=== PATIENT | female | born 1985 | race Caucasian/White ===

== ENCOUNTER 2021-07-25 09:27 | Inpatient (IN) | payer OTHER ==
[2021-07-25] MEDS ORDERED: Sodium Chloride 0.9% 10 ML Syringe FLUSH PRN (10:29)
[2021-07-25] MEDS ORDERED: Lactated Ringers 1,000 ML IV ONE (10:32)
[2021-07-25] MEDS ORDERED: ePHEDrine 50 MG/ML SDV IVPUSH PRN (10:32)
[2021-07-25 11:25] LABS: CORONAVIRUS COVID-19 NAA NEGATIVE (NEGATIVE)
[2021-07-25] MEDS ORDERED: Ropivacaine 100 ML ONE (12:03)
--- NOTE | 2021-07-25 12:49 | PCM.LDHP ---
L&D History of Present Illness - General Date of Service: 07/25/21 Admit Problem/Dx: Patient Status Order with Admit Dx/Problem 07/25/21 10:29 Patient Status [ADT] Routine Admission Diagnosis/Problem Admission Diagnosis/Problem Labor established Source of Information: Patient History Limitations: Reports: No Limitations - History of Present Illness Introduction:: This 35 year old who is 39 2/7 present in labor and was dilated to 4 cm. She started dalila earlier this morning and had lots of mucous discharge. Contractions got increasingly stronger. No leakage of fluid. Adequate care. Labs: GBS neg ABO O pos HIV neg Rubella immune Timing/Duration: Reports: minutes: (1-2 minutes) Location, : Reports: Abdomen Quality: Reports: Pressure Severity: Mild Improves with: Reports: Medication Worsens with: Reports: None Associated Symptoms: Reports: vaginal discharge, moderate amount - Related Data Allergies/Adverse Reactions: Allergies Allergy/AdvReac Type Severity Reaction Status Date / Time No Known Allergies Allergy Verified 07/18/21 06:41 Home Medications: Home Meds Aspirin 81 mg PO DAILY 07/18/21 [History] Pnv No.95/Ferrous Fum/Folic AC [ Caplet] 1 each PO DAILY 07/18/21 [History] 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: : 2 Para: 1 LMP (Approximate): (FARIBA 07/25/21) Musculoskeletal History: Reports: Fracture Other Musculoskeletal History: left arm - Infectious Disease History Infectious Disease History: Reports: Chicken Pox, Novel Coronavirus - Past Surgical History HEENT Surgical History: Reports: Tonsillectomy Social & Family History - Family History Family Medical History: No Pertinent Family History - Tobacco Use Tobacco Use Status *Q: Never Tobacco User - Caffeine Use Caffeine Use: Reports: Coffee Other Caffeine Use: 1/day - Recreational Drug Use Recreational Drug Use: No H&P Review of Systems - Review of Systems: Review Of Systems: See Below General: Reports: No Symptoms HEENT: Reports: No Symptoms Pulmonary: Reports: No Symptoms Cardiovascular: Reports: No Symptoms Gastrointestinal: Reports: No Symptoms Genitourinary: Reports: No Symptoms Musculoskeletal: Reports: No Symptoms Skin: Reports: No Symptoms Psychiatric: Reports: No Symptoms Neurological: Reports: No Symptoms Hematologic/Lymphatic: Reports: No Symptoms Immunologic: Reports: No Symptoms L&D Exam - Exam Exam: See Below - Vital Signs Vital Signs: Last Vital Signs Temp Pulse 113 H 07/25/21 09:37 Resp BP 135/86 07/25/21 09:37 Pulse Ox 99 07/25/21 09:37 Weight: 229 lb 4.492 oz - OB Specific Contraction Duration (sec): 40-200 Contraction Frequency (min): 3-4 Contraction Intensity: Moderate Movement: Active Heart Tones: Present Heart Rate (FHR) Variability: Moderate (6-25 bpm) Presentation: Vertex Estimated Weight: 8 pounds - Mcmanus Score Mcmanus Score Cervix Position: Anterior Mcmanus Score Consistency: Soft Mcmanus Score Effacement: >80% Mcmanus Score Dilation: > 5 cm Mcmanus Score 's Station: -1 ,0 Mcmanus Score Total: 12 - Exam General: Alert, Oriented HEENT: PERRLA Neck: Supple Lungs: Clear to Auscultation, Normal Respiratory Effort Cardiovascular: Regular Rate, Regular Rhythm GI/Abdominal Exam: Soft Genitourinary: Cervical dilitation Back Exam: Full Range of Motion Extremities: No Pedal Edema, Normal Capillary Refill Skin: Warm Neurological: Cranial Nerves Intact Psychiatric: Alert, Normal Affect, Normal Mood - Patient Data Lab Results Last 24 hrs: Laboratory Results - last 24 hr 07/25/21 07/25/21 07/25/21 Range/Units 09:41 10:14 10:28 WBC 11.8 H (4.5-11.0) K/uL RBC 4.32 (3.30-5.50) M/uL Hgb 12.5 (12.0-15.0) g/dL Hct 37.2 (36.0-48.0) % MCV 86 (80-98) fL MCH 29 (27-31) pg MCHC 34 (32-36) % Plt Count 143 L (150-400) K/uL Neut % (Auto) 74.7 H (36-66) % Lymph % (Auto) 13.5 L (24-44) % [place] % (Auto) 9.1 H (2-6) % Eos % (Auto) 2.4 (2-4) % Baso % (Auto) 0.3 (0-1) % Urine Color Yellow (YELLOW) Urine Appearance Slightly cloudy A (CLEAR) Urine pH 6.0 (5.0-8.0) Ur Specific [place] 1.020 (1.008-1.030) Urine Protein Negative (NEGATIVE) mg/dL Urine Glucose (UA) Negative (NEGATIVE) mg/dL Urine Ketones Negative (NEGATIVE) mg/dL Urine Occult Blood Moderate H (NEGATIVE) Urine Nitrite Negative (NEGATIVE) Urine Bilirubin Negative (NEGATIVE) Urine Urobilinogen 0.2 (0.2-1.0) EU/dL Ur Leukocyte Esterase Small H (NEGATIVE) Urine RBC 5-10 H (0-5) Urine WBC 10-20 H (0-5) Ur Epithelial Cells Moderate Amorphous Sediment Not seen Urine Bacteria Many Urine Mucus Not seen Urine Opiates Screen Negative (NEGATIVE) Ur Oxycodone Screen Negative (NEGATIVE) Urine Methadone Screen Negative (NEGATIVE) Ur Propoxyphene Screen Negative (NEGATIVE) Ur Barbiturates Screen Negative (NEGATIVE) Ur Tricyclics Screen Negative (NEGATIVE) Ur Phencyclidine Scrn Negative (NEGATIVE) Ur Amphetamine Screen Negative (NEGATIVE) U Methamphetamines Scrn Negative (NEGATIVE) Urine MDMA Screen Negative (NEGATIVE) U Benzodiazepines Scrn Negative (NEGATIVE) U Cocaine Metab Screen Negative (NEGATIVE) U Marijuana (THC) Screen Negative (NEGATIVE) Influenza Type A RNA (NEGATIVE) RSV RNA (INAAT) (NEGATIVE) Influenza Type B RNA (NEGATIVE) SARS-CoV-2 RNA (RICO) (NEGATIVE) 07/25/21 Range/Units 10:31 WBC (4.5-11.0) K/uL RBC (3.30-5.50) M/uL Hgb (12.0-15.0) g/dL Hct (36.0-48.0) % MCV (80-98) fL MCH (27-31) pg MCHC (32-36) % Plt Count (150-400) K/uL Neut % (Auto) (36-66) % Lymph % (Auto) (24-44) % [place] % (Auto) (2-6) % Eos % (Auto) (2-4) % Baso % (Auto) (0-1) % Urine Color (YELLOW) Urine Appearance (CLEAR) Urine pH (5.0-8.0) Ur Specific [place] (1.008-1.030) Urine Protein (NEGATIVE) mg/dL Urine Glucose (UA) (NEGATIVE) mg/dL Urine Ketones (NEGATIVE) mg/dL Urine Occult Blood (NEGATIVE) Urine Nitrite (NEGATIVE) Urine Bilirubin (NEGATIVE) Urine Urobilinogen (0.2-1.0) EU/dL Ur Leukocyte Esterase (NEGATIVE) Urine RBC (0-5) Urine WBC (0-5) Ur Epithelial Cells Amorphous Sediment Urine Bacteria Urine Mucus Urine Opiates Screen (NEGATIVE) Ur Oxycodone Screen (NEGATIVE) Urine Methadone Screen (NEGATIVE) Ur Propoxyphene Screen (NEGATIVE) Ur Barbiturates Screen (NEGATIVE) Ur Tricyclics Screen (NEGATIVE) Ur Phencyclidine Scrn (NEGATIVE) Ur Amphetamine Screen (NEGATIVE) U Methamphetamines Scrn (NEGATIVE) Urine MDMA Screen (NEGATIVE) U Benzodiazepines Scrn (NEGATIVE) U Cocaine Metab Screen (NEGATIVE) U Marijuana (THC) Screen (NEGATIVE) Influenza Type A RNA Negative (NEGATIVE) RSV RNA (INAAT) Negative (NEGATIVE) Influenza Type B RNA Negative (NEGATIVE) SARS-CoV-2 RNA (RICO) Negative (NEGATIVE) Result Diagrams: 07/25/21 10:28 - Problem List (1) Active labor SNOMED Code(s): 997065497 ICD Code: [id number] - Status: Acute Current Visit: Yes Problem List Initiated/Reviewed/Updated: Yes Orders Last 24hrs: Active Orders 24 hr Category Date Time Status Patient Status [ADT] Routine ADT 07/25/21 10:29 Active Communication Order [RC] ASDIRECTED Care 07/25/21 10:29 Active Communication Order [RC] ASDIRECTED Care 07/25/21 10:32 Active Heart Tones [RC] PER UNIT ROUTINE Care 07/25/21 10:29 Active Insert Urinary Catheter [OM.PC] ASDIRECTED Care 07/25/21 10:45 Ordered Local Anesthetic Infusion Pump [RC] ASDIRECTED Care 07/25/21 10:32 Active Notify Provider Vital Signs [RC] PRN Care 07/25/21 10:31 Active Notify Provider [RC] PRN Care 07/25/21 10:29 Active OB Check [OM.PC] Click To Edit Care 07/25/21 09:33 Ordered PCEA Epidural [RC] ASDIRECTED Care 07/25/21 10:32 Active Up ad Nabila [RC] ASDIRECTED Care 07/25/21 10:29 Active Urinary Catheter Assessment [RC] ASDIRECTED Care 07/25/21 10:32 Active Vital Signs [RC] PER UNIT ROUTINE Care 07/25/21 10:29 Active Clear Liquid Diet [DIET] Diet 07/25/21 Lunch Active Sodium Chloride 0.9% [Saline Flush] Med 07/25/21 10:29 Active 10 ml FLUSH ASDIRECTED PRN ePHEDrine [ePHEDrine sulfate] Med 07/25/21 10:32 Active 10 mg IVPUSH ASDIRECTED PRN Epidural Catheter Management [OM.PC] Urgent Oth 07/25/21 10:32 Ordered Saline Lock Insert [OM.PC] Routine Oth 07/25/21 10:29 Ordered Resuscitation Status Routine Resus Stat 07/25/21 10:29 Ordered Medication Orders Ephedrine Sulfate (Ephedrine 50 Mg/Ml Sdv) 10 mg IVPUSH ASDIRECTED PRN PRN Reason: Hypotension Sodium Chloride (Sodium Chloride 0.9% 10 Ml Syringe) 10 ml FLUSH ASDIRECTED PRN PRN Reason: Keep Vein Open Assessment/Plan Comment:: 35 year old 39 2/7 weeks in active labor Plan: anticipate vaginal delivery
--- NOTE | 2021-07-25 14:18 | ANES ---
DATE OF SERVICE: 07/25/2021 INDICATIONS: I was called this afternoon for a young lady up in Labor and Delivery requesting labor epidural. A brief history and physical was done with the patient. The patient is healthy, not currently on any blood thinners. Risks and benefits were discussed with the patient including risk for infection, the risk for spinal headache. She verbalizes understanding, wishes to proceed with the labor epidural today. Platelet count was noted to be 142 prior. TECHNIQUE: The patient was sat at the edge of the bed. Betadine prep x3 to the lumbar region was done. Sterile drape was placed. 1% lidocaine skin wheal and deep was done. A 17-gauge Tuohy needle was inserted at approximately the L3-4 position. Loss of resistance was easily achieved at approximately 7 cm. Negative paresthesia, negative heme, negative CSF were noted. I then threaded the catheter through the Touhy needle easily. Tuohy needle was then withdrawn. Catheter was pulled back and secured at 15 cm. The patient tolerated that without difficulty. I then gave a 5 mL test dose. Laid the patient down in supine position with slight left uterine displacement and head of bed slightly elevated. Several minutes after the test dose, the patient did not show any signs of intravascular injection of local or did not have a subarachnoid block, so I then proceeded to give the patient a 12 mL bolus of 0.2% ropivacaine via the epidural and started her on a 0.2% ropivacaine drip at 12 mL an hour. The patient tolerated the bolus. Blood pressure was stable. The patient was starting to have a little bit of relief prior to leaving. I will be available as needed. Payam Escobar CRNA /[id number]
[2021-07-25] MEDS ORDERED: Methylergonovine 0.2 MG/1 ML Amp ONE (14:23)
[2021-07-25] MEDS ORDERED: Methylergonovine 0.2 MG/1 ML Amp IM ONE (14:32)
[2021-07-25] MEDS ORDERED: Hydrocortisone 2.5% Crm 30 GM Tube TOP PRN (14:52)
[2021-07-25] MEDS ORDERED: Benzocaine 20% Top Spray 56 GM Bottle TOP ONE (14:52)
[2021-07-25] MEDS ORDERED: Witch Hazel Medicated Pads 100/Jar TOP ONE (14:52)
[2021-07-25] MEDS ORDERED: Lanolin 100% Cream 40 GM Tube TOP ONE (14:52)
[2021-07-25] MEDS ORDERED: Ibuprofen 200 MG Tab, 24 Tab Bulk Bottle PO PRN (14:56)
[2021-07-25] MEDS ORDERED: Acetaminophen 325 MG Tab, 50 Tab Bulk Bottle PO PRN (14:56)
--- NOTE | 2021-07-25 15:12 | PCM.DEL ---
L & D Note - General Info Date of Service: 07/25/21 (childbirth) Mother's Due Date: 07/31/21 - Delivery Note Labor: Spontaneous Delivery Outcome: Livebirth Infant Delivery Method: Spontaneous Vaginal Delivery-Single Delivery Mode: Spontaneous Presentation: Vertex Nuchal Cord: None Anesthesia Type: Epidural Amniotic Fluid Description: Clear Episiotomy Type: None Laceration: None Placenta: Intact, Manual Removal, Retained Cord: 3 Vessels Estimated Blood Loss: 200 Resuscitation Needed: No : Bulb Syringe, Stimulated, Warmed, Crescent Used, Warmer Used Provider: Vane Bills Score 1 min: 7 Score 5 min: 8 Post Delivery Events: Retained Placenta Second Stage Interventions: Reports: Pushing Effectively, Pushing, Knee Chest Position Delivery Comments (Free Text/Narrative):: This 35 year old G2 now P2 who is 39 2/7 weeks delivered via at 1359 in [place] over an intact perineum. The was placed on mother's abdomen where he was dried and stimulated. The cord was double clamped and cut and her was taken to the warmer for assessment and stimulation. He cried spontaneously, was bulb suctioned and transitioned well. Apgars 7 & 9 color tone and color at 5 minutes. Three vessel cord weight 7-14. The placenta did not release and after 30 minutes manual removal was done in delivery suite as she had a good epidural and was comfortable enough for me to proceed. We had call the OR crew but ultimately did not need and further civil engineering assistant. The Placenta was a Rossi as very foul smelling. No lacerations of perineum, rectal vagina or cervix EBL: 200cc Mother and baby to post [place] was to breast as soon as the placenta was out and latched well First stage [address] Second Stage 9361-7802 Third stage 3946-3074 - General Info Date of Service: 07/25/21 Admission Dx/Problem (Free Text): Patient Status Order with Admit Dx/Problem 07/25/21 10:29 Patient Status [ADT] Routine Admission Diagnosis/Problem Admission Diagnosis/Problem Labor established Functional Status: Reports: Pain Controlled - Review of Systems General: Reports: No Symptoms HEENT: Reports: No Symptoms Pulmonary: Reports: No Symptoms Cardiovascular: Reports: No Symptoms Gastrointestinal: Reports: No Symptoms Genitourinary: Reports: No Symptoms Musculoskeletal: Reports: No Symptoms Skin: Reports: No Symptoms Neurological: Reports: No Symptoms Psychiatric: Reports: No Symptoms - Patient Data Vitals - Most Recent: Last Vital Signs Temp Pulse 97 07/25/21 13:07 Resp BP 122/70 07/25/21 12:54 Pulse Ox 97 07/25/21 13:07 Weight - Most Recent: 229 lb 4.492 oz Lab Results Last 24 Hours: Laboratory Results - last 24 hr 07/25/21 07/25/21 07/25/21 Range/Units 09:41 10:14 10:28 WBC 11.8 H (4.5-11.0) K/uL RBC 4.32 (3.30-5.50) M/uL Hgb 12.5 (12.0-15.0) g/dL Hct 37.2 (36.0-48.0) % MCV 86 (80-98) fL MCH 29 (27-31) pg MCHC 34 (32-36) % Plt Count 143 L (150-400) K/uL Neut % (Auto) 74.7 H (36-66) % Lymph % (Auto) 13.5 L (24-44) % [place] % (Auto) 9.1 H (2-6) % Eos % (Auto) 2.4 (2-4) % Baso % (Auto) 0.3 (0-1) % Urine Color Yellow (YELLOW) Urine Appearance Slightly cloudy A (CLEAR) Urine pH 6.0 (5.0-8.0) Ur Specific [place] 1.020 (1.008-1.030) Urine Protein Negative (NEGATIVE) mg/dL Urine Glucose (UA) Negative (NEGATIVE) mg/dL Urine Ketones Negative (NEGATIVE) mg/dL Urine Occult Blood Moderate H (NEGATIVE) Urine Nitrite Negative (NEGATIVE) Urine Bilirubin Negative (NEGATIVE) Urine Urobilinogen 0.2 (0.2-1.0) EU/dL Ur Leukocyte Esterase Small H (NEGATIVE) Urine RBC 5-10 H (0-5) Urine WBC 10-20 H (0-5) Ur Epithelial Cells Moderate Amorphous Sediment Not seen Urine Bacteria Many Urine Mucus Not seen Urine Opiates Screen Negative (NEGATIVE) Ur Oxycodone Screen Negative (NEGATIVE) Urine Methadone Screen Negative (NEGATIVE) Ur Propoxyphene Screen Negative (NEGATIVE) Ur Barbiturates Screen Negative (NEGATIVE) Ur Tricyclics Screen Negative (NEGATIVE) Ur Phencyclidine Scrn Negative (NEGATIVE) Ur Amphetamine Screen Negative (NEGATIVE) U Methamphetamines Scrn Negative (NEGATIVE) Urine MDMA Screen Negative (NEGATIVE) U Benzodiazepines Scrn Negative (NEGATIVE) U Cocaine Metab Screen Negative (NEGATIVE) U Marijuana (THC) Screen Negative (NEGATIVE) Influenza Type A RNA (NEGATIVE) RSV RNA (INAAT) (NEGATIVE) Influenza Type B RNA (NEGATIVE) SARS-CoV-2 RNA (RICO) (NEGATIVE) 07/25/21 Range/Units 10:31 WBC (4.5-11.0) K/uL RBC (3.30-5.50) M/uL Hgb (12.0-15.0) g/dL Hct (36.0-48.0) % MCV (80-98) fL MCH (27-31) pg MCHC (32-36) % Plt Count (150-400) K/uL Neut % (Auto) (36-66) % Lymph % (Auto) (24-44) % [place] % (Auto) (2-6) % Eos % (Auto) (2-4) % Baso % (Auto) (0-1) % Urine Color (YELLOW) Urine Appearance (CLEAR) Urine pH (5.0-8.0) Ur Specific [place] (1.008-1.030) Urine Protein (NEGATIVE) mg/dL Urine Glucose (UA) (NEGATIVE) mg/dL Urine Ketones (NEGATIVE) mg/dL Urine Occult Blood (NEGATIVE) Urine Nitrite (NEGATIVE) Urine Bilirubin (NEGATIVE) Urine Urobilinogen (0.2-1.0) EU/dL Ur Leukocyte Esterase (NEGATIVE) Urine RBC (0-5) Urine WBC (0-5) Ur Epithelial Cells Amorphous Sediment Urine Bacteria Urine Mucus Urine Opiates Screen (NEGATIVE) Ur Oxycodone Screen (NEGATIVE) Urine Methadone Screen (NEGATIVE) Ur Propoxyphene Screen (NEGATIVE) Ur Barbiturates Screen (NEGATIVE) Ur Tricyclics Screen (NEGATIVE) Ur Phencyclidine Scrn (NEGATIVE) Ur Amphetamine Screen (NEGATIVE) U Methamphetamines Scrn (NEGATIVE) Urine MDMA Screen (NEGATIVE) U Benzodiazepines Scrn (NEGATIVE) U Cocaine Metab Screen (NEGATIVE) U Marijuana (THC) Screen (NEGATIVE) Influenza Type A RNA Negative (NEGATIVE) RSV RNA (INAAT) Negative (NEGATIVE) Influenza Type B RNA Negative (NEGATIVE) SARS-CoV-2 RNA (RICO) Negative (NEGATIVE) Med Orders - Current: Current Medications Acetaminophen (Acetaminophen 325 Mg Tab, 50 Tab Bulk Bottle) 0 mg PO Q4H PRN PRN Reason: Pain Benzocaine (Benzocaine 20% Top [place] 56 Gm Bottle) 0 gm TOP Q4H ONE Stop: 07/25/21 14:53 Emollient Ointment (Lanolin 100% Cream 40 Gm Tube) 1 gm TOP ASDIRECTED ONE Stop: 07/25/21 14:53 Ephedrine Sulfate (Ephedrine 50 Mg/Ml Sdv) 10 mg IVPUSH ASDIRECTED PRN PRN Reason: Hypotension Hydrocortisone (Hydrocortisone 2.5% Crm 30 Gm Tube) 1 gm TOP ASDIRECTED PRN PRN Reason: Itching Ibuprofen (Ibuprofen 200 Mg Tab, 24 Tab Bulk Bottle) 600 mg PO Q6H PRN PRN Reason: Pain Methylergonovine Maleate (Methylergonovine 0.2 Mg Tab) 0.2 mg PO TID TI Stop: 07/26/21 14:01 Sodium Chloride (Sodium Chloride 0.9% 10 Ml Syringe) 10 ml FLUSH ASDIRECTED PRN PRN Reason: Keep Vein Open Witch Gisela (Witch Gisela Medicated Pads 100/Jar) 1 pad TOP ASDIRECTED ONE Stop: 07/25/21 14:53 Discontinued Medications Lactated Ringer's (Ringers, Lactated) 1,000 mls @ 999 mls/hr IV .BOLUS ONE Stop: 07/25/21 11:32 Last Admin: 07/25/21 11:41 Dose: 999 mls/hr Documented by: Ropivacaine (Naropin 0.2%) Confirm Administered Dose 100 mls @ as directed .ROUTE .STK-MED ONE Stop: 07/25/21 12:04 Oxytocin/Sodium Chloride (Pitocin In Ns 20 Units/1,000 Ml) Confirm Administered Dose 20 unit in 1,000 mls @ as directed .ROUTE .STK-MED ONE Stop: 07/25/21 13:58 Methylergonovine Maleate (Methylergonovine 0.2 Mg/1 Ml Amp) Confirm Administered Dose 0.2 mg .ROUTE .STK-MED ONE Stop: 07/25/21 14:24 - Exam General: Alert, Oriented HEENT: Pupils Equal Neck: Supple Lungs: Normal Respiratory Effort Cardiovascular: Regular Rate, Regular Rhythm GI/Abdominal Exam: Soft (Female) Exam: Enlarged Uterus, Vaginal Bleeding Back Exam: Full Range of Motion Extremities: No Pedal Edema, Normal Capillary Refill Skin: Warm Wound/Incisions: Healing Well Neurological: No New Focal Deficit Psy/Mental Status: Alert, Normal Affect, Normal Mood - Problem List & Annotations (1) Active labor SNOMED Code(s): 562878418 Code(s): SMA6845 - Status: Acute Current Visit: Yes (2) (infant) SNOMED Code(s): 815277302 Code(s): Z78.9 - OTHER SPECIFIED HEALTH STATUS Status: Acute Current Visit: Yes (3) Retained placenta or membranes without hemorrhage SNOMED Code(s): 1150836260 Code(s): SRY4449 - Status: Acute Current Visit: Yes (4) Vaginal delivery SNOMED Code(s): 922853722 Code(s): O80 - ENCOUNTER FOR FULL-TERM UNCOMPLICATED DELIVERY Status: Acute Current Visit: Yes - Problem List Review Problem List Initiated/Reviewed/Updated: Yes - My Orders Last 24 Hours: My Active Orders 07/25/21 14:52 Patient Status [ADT] Routine Vital Signs [RC] PFP Benzocaine [Pflx-N-Lskypip 20% Merkel] See Dose Instructions TOP Q4H ONE Hydrocortisone [Proctozone-HC 2.5% Crm] 1 gm TOP ASDIRECTED PRN Lanolin [Lansinoh HPA] 1 gm TOP ASDIRECTED ONE witch Gisela [Tucks] 1 pad TOP ASDIRECTED ONE DVT/VTE Prophylaxis Reflex [OM.PC] Routine 07/25/21 14:54 Antiembolic Devices [RC] .Routine VTE/DVT Education [RC] Click to Edit 07/25/21 14:56 Acetaminophen [Tylenol Bulk Bottle] See Dose Instructions PO Q4H PRN Ibuprofen [Motrin Bulk Bottle] 600 mg PO Q6H PRN 07/25/21 Dinner Regular Diet [DIET] 07/25/21 21:00 Methylergonovine [Methergine] 0.2 mg PO TID 07/26/21 05:11 CBC W/O DIFF,HEMOGRAM [HEME] AM - Assessment Assessment:: 07/25/21 Routine cares CBC in am Methergine times three doses placenta to pathology 24-48 hour stay - Plan Plan:: 35 year old 39 2/ weeks in active labor Plan: anticipate vaginal delivery 07/25/21 24-48 hour stay see above
[2021-07-25] MEDS ORDERED: Lanolin 100% Cream 40 GM Tube TOP PRN (15:43)
[2021-07-25] MEDS ORDERED: Benzocaine 20% Top Spray 56 GM Bottle TOP PRN (15:43)
[2021-07-25] MEDS ORDERED: Witch Hazel Medicated Pads 100/Jar TOP PRN (15:44)
[2021-07-25] MEDS: Methylergonovine 0.2 MG Tab PO SCH (22:01)
--- NOTE | 2021-07-26 08:24 | PCM.PNPP ---
- General Info Date of Service: 07/26/21 (PPD 1 D/C) Admission Dx/Problem (Free Text): Patient Status Order with Admit Dx/Problem 07/25/21 10:29 Patient Status [ADT] Routine Admission Diagnosis/Problem Admission Diagnosis/Problem Labor established Functional Status: Reports: Pain Controlled - Review of Systems General: Reports: No Symptoms HEENT: Reports: No Symptoms Pulmonary: Reports: No Symptoms Cardiovascular: Reports: No Symptoms Gastrointestinal: Reports: No Symptoms Genitourinary: Reports: No Symptoms Musculoskeletal: Reports: No Symptoms Skin: Reports: No Symptoms Neurological: Reports: No Symptoms Psychiatric: Reports: No Symptoms - Patient Data Vital Signs - Most Recent: Last Vital Signs Temp 96.9 F 07/26/21 07:18 Pulse 80 07/26/21 07:18 Resp 16 07/26/21 07:18 BP 110/78 07/26/21 07:18 Pulse Ox 97 07/26/21 07:18 Weight - Most Recent: 229 lb 4.492 oz I&O - Last 24 Hours: Intake & Output 07/25/21 07/26/21 07/26/21 22:59 06:59 14:59 Intake Total 900 Balance 900 Lab Results - Last 24 Hours: Laboratory Results - last 24 hr 07/25/21 07/25/21 07/25/21 Range/Units 09:41 10:14 10:28 WBC 11.8 H (4.5-11.0) K/uL RBC 4.32 (3.30-5.50) M/uL Hgb 12.5 (12.0-15.0) g/dL Hct 37.2 (36.0-48.0) % MCV 86 (80-98) fL MCH 29 (27-31) pg MCHC 34 (32-36) % Plt Count 143 L (150-400) K/uL Neut % (Auto) 74.7 H (36-66) % Lymph % (Auto) 13.5 L (24-44) % [place] % (Auto) 9.1 H (2-6) % Eos % (Auto) 2.4 (2-4) % Baso % (Auto) 0.3 (0-1) % Urine Color Yellow (YELLOW) Urine Appearance Slightly cloudy A (CLEAR) Urine pH 6.0 (5.0-8.0) Ur Specific [place] 1.020 (1.008-1.030) Urine Protein Negative (NEGATIVE) mg/dL Urine Glucose (UA) Negative (NEGATIVE) mg/dL Urine Ketones Negative (NEGATIVE) mg/dL Urine Occult Blood Moderate H (NEGATIVE) Urine Nitrite Negative (NEGATIVE) Urine Bilirubin Negative (NEGATIVE) Urine Urobilinogen 0.2 (0.2-1.0) EU/dL Ur Leukocyte Esterase Small H (NEGATIVE) Urine RBC 5-10 H (0-5) Urine WBC 10-20 H (0-5) Ur Epithelial Cells Moderate Amorphous Sediment Not seen Urine Bacteria Many Urine Mucus Not seen Urine Opiates Screen Negative (NEGATIVE) Ur Oxycodone Screen Negative (NEGATIVE) Urine Methadone Screen Negative (NEGATIVE) Ur Propoxyphene Screen Negative (NEGATIVE) Ur Barbiturates Screen Negative (NEGATIVE) Ur Tricyclics Screen Negative (NEGATIVE) Ur Phencyclidine Scrn Negative (NEGATIVE) Ur Amphetamine Screen Negative (NEGATIVE) U Methamphetamines Scrn Negative (NEGATIVE) Urine MDMA Screen Negative (NEGATIVE) U Benzodiazepines Scrn Negative (NEGATIVE) U Cocaine Metab Screen Negative (NEGATIVE) U Marijuana (THC) Screen Negative (NEGATIVE) Influenza Type A RNA (NEGATIVE) RSV RNA (INAAT) (NEGATIVE) Influenza Type B RNA (NEGATIVE) SARS-CoV-2 RNA (RICO) (NEGATIVE) 07/25/21 07/26/21 Range/Units 10:31 04:46 WBC 14.2 H (4.5-11.0) K/uL RBC 4.38 (3.30-5.50) M/uL Hgb 12.6 (12.0-15.0) g/dL Hct 38.1 (36.0-48.0) % MCV 87 (80-98) fL MCH 29 (27-31) pg MCHC 33 (32-36) % Plt Count 139 L (150-400) K/uL Neut % (Auto) (36-66) % Lymph % (Auto) (24-44) % [place] % (Auto) (2-6) % Eos % (Auto) (2-4) % Baso % (Auto) (0-1) % Urine Color (YELLOW) Urine Appearance (CLEAR) Urine pH (5.0-8.0) Ur Specific [place] (1.008-1.030) Urine Protein (NEGATIVE) mg/dL Urine Glucose (UA) (NEGATIVE) mg/dL Urine Ketones (NEGATIVE) mg/dL Urine Occult Blood (NEGATIVE) Urine Nitrite (NEGATIVE) Urine Bilirubin (NEGATIVE) Urine Urobilinogen (0.2-1.0) EU/dL Ur Leukocyte Esterase (NEGATIVE) Urine RBC (0-5) Urine WBC (0-5) Ur Epithelial Cells Amorphous Sediment Urine Bacteria Urine Mucus Urine Opiates Screen (NEGATIVE) Ur Oxycodone Screen (NEGATIVE) Urine Methadone Screen (NEGATIVE) Ur Propoxyphene Screen (NEGATIVE) Ur Barbiturates Screen (NEGATIVE) Ur Tricyclics Screen (NEGATIVE) Ur Phencyclidine Scrn (NEGATIVE) Ur Amphetamine Screen (NEGATIVE) U Methamphetamines Scrn (NEGATIVE) Urine MDMA Screen (NEGATIVE) U Benzodiazepines Scrn (NEGATIVE) U Cocaine Metab Screen (NEGATIVE) U Marijuana (THC) Screen (NEGATIVE) Influenza Type A RNA Negative (NEGATIVE) RSV RNA (INAAT) Negative (NEGATIVE) Influenza Type B RNA Negative (NEGATIVE) SARS-CoV-2 RNA (RICO) Negative (NEGATIVE) Med Orders - Current: Current Medications Acetaminophen (Acetaminophen 325 Mg Tab, 50 Tab Bulk Bottle) 0 mg PO Q4H PRN PRN Reason: Pain Last Admin: 07/25/21 15:53 Dose: 1 bottle Documented by: Benzocaine (Benzocaine 20% Top [place] 56 Gm Bottle) 0 gm TOP Q4H PRN PRN Reason: PERINEAL PAIN Emollient Ointment (Lanolin 100% Cream 40 Gm Tube) 1 gm TOP ASDIRECTED PRN PRN Reason: SORE NIPPLES Ephedrine Sulfate (Ephedrine 50 Mg/Ml Sdv) 10 mg IVPUSH ASDIRECTED PRN PRN Reason: Hypotension Hydrocortisone (Hydrocortisone 2.5% Crm 30 Gm Tube) 1 gm TOP ASDIRECTED PRN PRN Reason: Itching Oxytocin/Sodium Chloride (Pitocin In Ns 20 Units/1,000 Ml) 20 unit in 1,000 mls @ 2,997 mls/hr IV TITRATE TI; Protocol Last Titration: 07/25/21 14:30 Dose: 41.67 munits/min, 125.01 mls/hr Documented by: Ibuprofen (Ibuprofen 200 Mg Tab, 24 Tab Bulk Bottle) 600 mg PO Q6H PRN PRN Reason: Pain Last Admin: 07/25/21 15:51 Dose: 1 bottle Documented by: Methylergonovine Maleate (Methylergonovine 0.2 Mg Tab) 0.2 mg PO TID TI Stop: 07/26/21 14:01 Last Admin: 07/25/21 22:01 Dose: 0.2 mg Documented by: Sodium Chloride (Sodium Chloride 0.9% 10 Ml Syringe) 10 ml FLUSH ASDIRECTED PRN PRN Reason: Keep Vein Open Meliza Higgins (Meliza Higgins Medicated Pads 100/Jar) 1 pad TOP ASDIRECTED PRN PRN Reason: PERINEUM PAIN Discontinued Medications Benzocaine (Benzocaine 20% Top [place] 56 Gm Bottle) 0 gm TOP Q4H ONE Stop: 07/25/21 14:53 Last Admin: 07/25/21 15:52 Dose: 1 can Documented by: Emollient Ointment (Lanolin 100% Cream 40 Gm Tube) 1 gm TOP ASDIRECTED ONE Stop: 07/25/21 14:53 Last Admin: 07/25/21 15:52 Dose: 1 tube Documented by: Lactated Ringer's (Ringers, Lactated) 1,000 mls @ 999 mls/hr IV .BOLUS ONE Stop: 07/25/21 11:32 Last Admin: 07/25/21 11:41 Dose: 999 mls/hr Documented by: Ropivacaine (Naropin 0.2%) Confirm Administered Dose 100 mls @ as directed .ROUTE .STK-MED ONE Stop: 07/25/21 12:04 Oxytocin/Sodium Chloride (Pitocin In Ns 20 Units/1,000 Ml) Confirm Administered Dose 20 unit in 1,000 mls @ as directed .ROUTE .STK-MED ONE Stop: 07/25/21 13:58 Last Admin: 07/25/21 15:56 Dose: Not Given Documented by: Methylergonovine Maleate (Methylergonovine 0.2 Mg/1 Ml Amp) Confirm Administered Dose 0.2 mg .ROUTE .STK-MED ONE Stop: 07/25/21 14:24 Last Admin: 07/25/21 15:53 Dose: Not Given Documented by: Methylergonovine Maleate (Methylergonovine 0.2 Mg/1 Ml Amp) 0.2 mg IM Q4H ONE Stop: 07/25/21 14:33 Last Admin: 07/25/21 14:32 Dose: 0.2 mg Documented by: Meliza Higgins (Meliza Higgins Medicated Pads 100/Jar) 1 pad TOP ASDIRECTED ONE Stop: 07/25/21 14:53 Last Admin: 07/25/21 15:51 Dose: 1 bottle Documented by: - Infant Interaction Disposition, : in Room with Family Interaction: Holding Feeding: Breastfed Infant; Nursed Well Support Person: - Recovery Exam Fundal Tone: Firm Fundal Level: At Umbilicus Fundal Placement: Midline Lochia Amount: Moderate Lochia Color: Rubra/Red Perineum Description: Intact, Minimal Bruising/Swelling, Edematous Episiotomy/Laceration: None Bladder Status: Voiding - Exam General: Alert, Oriented HEENT: Pupils Equal Neck: Supple Lungs: Normal Respiratory Effort Cardiovascular: Regular Rate, Regular Rhythm GI/Abdominal Exam: Soft Extremities: No Pedal Edema, Normal Capillary Refill Skin: Warm Wound/Incisions: Healing Well Neurological: No New Focal Deficit Psy/Mental Status: Alert, Normal Affect, Normal Mood - Problem List & Annotations (1) Active labor SNOMED Code(s): 672688753 Code(s): TTD4459 - Status: Acute Current Visit: Yes (2) (infant) SNOMED Code(s): 934813202 Code(s): Z78.9 - OTHER SPECIFIED HEALTH STATUS Status: Acute Current Visit: Yes (3) Retained placenta or membranes without hemorrhage SNOMED Code(s): 8161988458 Code(s): WWE8087 - Status: Acute Current Visit: Yes (4) Vaginal delivery SNOMED Code(s): 570271607 Code(s): O80 - ENCOUNTER FOR FULL-TERM UNCOMPLICATED DELIVERY Status: Acute Current Visit: Yes - Problem List Review Problem List Initiated/Reviewed/Updated: Yes - My Orders Last 24 Hours: My Active Orders 07/25/21 14:52 Patient Status [ADT] Routine Hydrocortisone [Proctozone-HC 2.5% Crm] 1 gm TOP ASDIRECTED PRN DVT/VTE Prophylaxis Reflex [OM.PC] Routine 07/25/21 14:54 VTE/DVT Education [RC] Click to Edit 07/25/21 14:56 Acetaminophen [Tylenol Bulk Bottle] See Dose Instructions PO Q4H PRN Ibuprofen [Motrin Bulk Bottle] 600 mg PO Q6H PRN 07/25/21 15:43 Benzocaine [Njof-P-Fmtjwcn 20% [place]] 0 gm TOP Q4H PRN Lanolin [Lansinoh HPA] 1 gm TOP ASDIRECTED PRN 07/25/21 15:44 witcr Nimo [Tucks] 1 pad TOP ASDIRECTED PRN 07/25/21 16:00 Oxytocin/Normal Saline [Pitocin in NS 20 Units/1,000 ML] 20 unit in 1,000 ml IV TITRATE 07/25/21 Dinner Regular Diet [DIET] 07/25/21 21:00 Methylergonovine [Methergine] 0.2 mg PO TID - Assessment Assessment:: 07/25/21 Routine cares CBC in am Methergine times three doses placenta to pathology 24-48 hour stay 07/26/21 Mood happy breasts leaking milk, greaat latch no problems voiding flow moderate, but getting better, no clots hgb 12.6 - Plan Plan:: 35 year old 39 2/7 weeks in active labor Plan: anticipate vaginal delivery 07/25/21 24-48 hour stay see above 07/26/21 Home today see me in 6 weeks for a post visit
[2021-07-26] MEDS: Methylergonovine 0.2 MG Tab PO SCH (08:46)
== END 2021-07-26 15:15 | disposition home or self-care (01) | DRG 807 ==
LOC: JP.OBCHECK 09:27 → JP.OB 09:29 → JP.OBCHECK 10:28 → JP.OB 10:29 → OBSVTOIN 13:59 → JP.MS 18:00
PROVIDERS: ADMIT Family Medicine; ATTEND Nurse Practitioner Family
PROC: 10E0XZZ Delivery of Products of Conception, External Approach (ICD-10-PCS; principal; 2021-07-25)
PROC: 10D17Z9 Manual Extraction of Products of Conception, Retained, Via Natural or Artificial Opening (ICD-10-PCS; 2021-07-25)
PROC: 3E0R3BZ Introduction of Anesthetic Agent into Spinal Canal, Percutaneous Approach (ICD-10-PCS; 2021-07-25)
PROC: 00HU33Z Insertion of Infusion Device into Spinal Canal, Percutaneous Approach (ICD-10-PCS; 2021-07-25)
DX: O73.0 Retained placenta without hemorrhage (principal); Z37.0 Single live birth; Z3A.39 39 weeks gestation of pregnancy; Z20.822 Contact with and (suspected) exposure to COVID-19
CPT/HCPCS: 0241U; 36415; 51702; 80305-QW; 81001; 85025; 85027; 88307; 99211; A9270-GY; J2210; J2590; J2795; J7120